=== PATIENT | male | born 1940 | race Caucasian/White ===

== ENCOUNTER 2021-07-22 13:07 | Inpatient (IN) ==
[2021-07-22 14:45] LABS: ABS Lymphocytes 0.7 10^3/ul (1.0-4.8); ABS Monocytes 0.8 10^3/ul (0-0.8); ABS Neutrophils 3.9 10^3/ul (1.5-7.7); Eosinophil % 0.5 %; Hematocrit 45 % (42-52); Hemoglobin 15.3 g/dL (14.0-18.0); Mean Corpuscular HGB Conc 34 g/dL (31-36); Mean Corpuscular Hemoglobin 30 pg (27-31); Mean Corpuscular Volume 89 fL (80-94); Mean Platelet Volume 7.9 fL (7.4-10.4); Nucleated Red Blood Cells % 0.1; Platelet Count 193 10^3/uL (150-450); Red Blood Count 5.09 10^6 /uL (4.18-5.48); Red Cell Distribution Width 14 % (10-15); White Blood Count 5.5 10^3/uL (3.5-10.8)
[2021-07-22 15:06] LABS: Activated Partial Thrombo Time 31.6 seconds (26.0-38.0); INR 1.08 (0.86-1.15)
[2021-07-22 15:15] LABS: Albumin 3.8 g/dL (3.2-5.2); Albumin/Globulin Ratio 1.3 (1-3); C Reactive Protein 54.17 mg/L (<8.01); Calcium 8.4 mg/dL (8.6-10.3); Total Bilirubin 0.6 mg/dL (0.2-1.0); Total Protein 6.8 g/dL (6.4-8.9); eGFR CKD-EPI 82.5 (>60)
[2021-07-22] MEDS ORDERED: Dexamethasone IV 4 MG/ML VIAL 1 ml VIAL IV SLOW PU ONE (15:52)
[2021-07-22] MEDS ORDERED: Remdesivir 100 mg Vial 200 MG in NS 0.9% 250 ml 210 ML IV ONE (18:33)
[2021-07-22] MEDS ORDERED: Albuterol HFA INHALER 8 gm MDI INH PRN (18:47)
[2021-07-22] MEDS ORDERED: Enoxaparin 40 MG/0.4 ML SYR SUBCUT SCH (19:30)
[2021-07-22 21:47] LABS: INR 1.15 (0.86-1.15)
[2021-07-22 22:02] LABS: Albumin 3.7 g/dL (3.2-5.2); Albumin/Globulin Ratio 1.2 (1-3); Calcium 8.4 mg/dL (8.6-10.3); Potassium 4.1 mmol/L (3.5-5.0); Total Bilirubin 0.6 mg/dL (0.2-1.0); Total Protein 6.7 g/dL (6.4-8.9); eGFR CKD-EPI 85.7 (>60)
[2021-07-23 06:49] LABS: ABS Lymphocytes 0.5 10^3/ul (1.0-4.8); ABS Monocytes 0.4 10^3/ul (0-0.8); ABS Neutrophils 2.3 10^3/ul (1.5-7.7); Hematocrit 44 % (42-52); Hemoglobin 14.6 g/dL (14.0-18.0); Lymphocyte % 15.8 %; Mean Corpuscular HGB Conc 33 g/dL (31-36); Mean Corpuscular Hemoglobin 30 pg (27-31); Mean Corpuscular Volume 90 fL (80-94); Mean Platelet Volume 7.7 fL (7.4-10.4); Nucleated Red Blood Cells % 0.1; Platelet Count 185 10^3/uL (150-450); Red Blood Count 4.85 10^6 /uL (4.18-5.48); Red Cell Distribution Width 14 % (10-15); White Blood Count 3.2 10^3/uL (3.5-10.8)
[2021-07-23 07:08] LABS: Albumin 3.4 g/dL (3.2-5.2); Albumin/Globulin Ratio 1.1 (1-3); Calcium 8.3 mg/dL (8.6-10.3); Potassium 4.5 mmol/L (3.5-5.0); Total Bilirubin 0.4 mg/dL (0.2-1.0); Total Protein 6.4 g/dL (6.4-8.9); eGFR CKD-EPI 76.6 (>60)
[2021-07-23 07:12] LABS: INR 1.1 (0.86-1.15)
[2021-07-23 11:24] LABS: PSA Screening Total 7.043 ng/mL (0-4.000)
[2021-07-23 15:50] VITALS: BP 126/77
[2021-07-23] MEDS ORDERED: Remdesivir 100 mg Vial 100 MG in NS 0.9% 250 ml 230 ML IV SCH (21:00)
== END 2021-07-23 17:45 | disposition home or self-care (01) | DRG 177 ==
LOC: MED 13:07 → ED 13:07 → MED 23:30
PROVIDERS: ADMIT Hospitalist; ATTEND Hospitalist